=== PATIENT | female | born 1955 | race Caucasian/White ===

== ENCOUNTER 2017-03-30 10:37 | Day surgery (SDC) | payer BC ==
[2017-03-29 11:12] LABS: HEMATOCRIT 41.9 % (36.0-48.0)
[2017-03-29 11:28] LABS: BUN (BLOOD UREA NITROGEN) 13 MG/DL (6-23); CALCIUM, SERUM 9.3 MG/DL (8.5-10.4); CHLORIDE, SERUM 110 MMOL/L (96-112); CO2 (CARBON DIOXIDE) 32 MMOL/L (24-34); CREATININE 1.19 MG/DL (0.55-1.02); GFR AFRICAN AMERICAN 56 ML/MIN (>=60); GFR NON AFRICAN AMERICAN 49 ML/MIN (>=60); GLUCOSE, SERUM 81 MG/DL (60-99); POTASSIUM, SERUM 3.9 MMOL/L (3.5-5.3); SODIUM, SERUM 146 MMOL/L (135-148)
[~2017-03-30 10:37] MED LIST: ATEN25 PO; CELEXA20 PO; CLARIT10 PO; CRESTOR40 MG PO; IBU800 PO; KLONO1 PO; NASONEX NAS; NEUR300 PO; PERCOCET 7.5/321 TAB PO; PERCOCET1 TA2 PO; PROVHFA INH; SPIRIVA INH; TRAZODONE150 MG PO; XANAX1 MG PO; ZANAFLEX2 MG PO
== END 2017-03-30 13:04 | disposition home or self-care (01) ==
LOC: IMGHOLD 10:37 → RADHOLD 10:41
PROVIDERS: Physician Assistant Medical
DX: G89.29 Other chronic pain (principal); M54.5 Low back pain; M48.06 Spinal stenosis, lumbar region; M51.36 Other intervertebral disc degeneration, lumbar region; M19.90 Unspecified osteoarthritis, unspecified site; J44.9 Chronic obstructive pulmonary disease, unspecified; I10 Essential (primary) hypertension; E78.00 Pure hypercholesterolemia, unspecified; G25.81 Restless legs syndrome; F17.210 Nicotine dependence, cigarettes, uncomplicated; Z85.3 Personal history of malignant neoplasm of breast; Z88.5 Allergy status to narcotic agent; Z79.899 Other long term (current) drug therapy
CPT/HCPCS: 72148; 80048; 85014; 85018; 93005; A9270-GY; J2405